=== PATIENT | female | born 1960 | race Caucasian/White ===

== ENCOUNTER 2019-01-23 08:47 | Inpatient (IN) | payer OTHER ==
[~2019-01-23] VITALS: Ht 167.6 cm; Wt 72.6 kg
--- NOTE | ~2019-01-23 | OP ---
[facility] [address] [place] [address] OPERATIVE REPORT Name: LA NENA JAMESON Room: [address] [place] .R.#: [id number] Admission: 01/23/19 Attend Phys: Fredis Berrios MD Discharge: Date of : 62 Report #: [id number] THIS REPORT FOR: //name// CC: LAKESHA physician/PCP Fredis Berrios DATE OF SERVICE: 01/23/2019 PREOPERATIVE DIAGNOSIS: Displaced bilateral Colles' fractures. POSTOPERATIVE DIAGNOSIS: Displaced bilateral Colles' fractures. OPERATIVE PROCEDURES PERFORMED: 1. Open reduction and internal fixation of displaced left distal radius. 2. Open reduction and internal fixation of displaced right distal radius. DESCRIPTION OF PROCEDURE: Under general endotracheal anesthesia, the patient was placed on to the operating room table in the supine position. Routine prep and drape was performed of both hands and arms. The procedures were performed under tourniquet ischemia. Bleeding was controlled by electrocautery. The wounds were irrigated every 20 minutes with bacitracin solution. Identical procedures were performed of both wrists. Following an appropriate timeout procedure, a 3-inch skin incision was made over the volar aspect of the distal radius. The incision was carried through the skin, subcutaneous tissue and fascia. The flexor carpi radialis tendon was retracted toward the ulnar side of the risk. Blunt dissection was carried down to the quadratus muscle. The quadratus muscle was then incised along the radial border at its insertion. An elevator was used to elevate the quadratus muscle from the volar aspect of the distal radius and fracture site. Under C-arm fluoroscopy control, both fractures were reduced into an anatomic position. A smooth K-wire was passed across the fracture site to secure the fracture in an anatomic position. A compression plate was then inserted with its component screws securing the distal radial fractures in an anatomic position. Both procedures were performed under C-arm fluoroscopy control. Operative x-rays were obtained and saved. The wounds were copiously irrigated and closed in layers with 2-0 Vicryl for the muscular and fascial layers. The skin was then closed with 4-0 nylon sutures. Sterile dressing was applied. The patient tolerated the procedures well and was returned to the recovery area in good condition. By: [id number] Gonzalez MD /samara
[~2019-01-23 08:47] MED LIST: BONE DENSITY; CALCI; CALCIUM PO; PERCOCET 5-3251 EACH PO; VITAMIN D1000 UNI1 PO
[2019-01-23 08:53] VITALS: BP 150/92
[2019-01-23 11:21] LABS: ABSOLUTE LYMPHOCYTES 1.7 thou/uL (0.8-5.3); ABSOLUTE MONOCYTES 0.4 thou/uL (0.0-1.2); ABSOLUTE NEUTROPHILS 4.8 thou/uL (1.6-8.1); BASOPHILS 0.5 %; EOSINOPHILS 0.4 %; HEMATOCRIT 43.6 % (37.0-47.0); HEMOGLOBIN 14.5 gm/dL (12.0-15.0); LYMPHOCYTES 24.3 %; MCHC 33.2 g/dL (28.0-37.0); MCV 93.5 fL (80.0-100.0); MONOCYTES 5.6 %; MPV 9.2 fl. (7.2-11.1); NUCLEATED RBCS 0 /100WBC; PLATELET COUNT* 154 thou/uL (150-400); POLYS 69.2 %; RBC 4.67 mil/uL (4.20-5.00); RDW-CV 13.3 % (10.5-14.5); WBC 6.9 thou/uL (4.0-11.0)
[2019-01-23 11:24] LABS: CALCIUM 9.9 mg/dL (8.5-10.1); CREATININE 0.9 mg/dL (0.6-1.3); MAGNESIUM 1.8 mg/dL (1.8-2.4); POTASSIUM 4.2 mmol/L (3.5-5.1)
--- NOTE | 2019-01-23 11:51 | NUR ---
REPORT GIVEN TO LIYA FORD WHO IS TO ASSUME PT CARE INPATIENT NURSE.
[2019-01-23 11:52] VITALS: BP 157/80
[2019-01-23 11:53] LABS: APTT 26.6 Seconds (25.0-31.3); PROTIME 10.1 Seconds (9.20-11.50)
[2019-01-23 11:55] VITALS: BP 136/76
--- NOTE | 2019-01-23 11:55 | NUR ---
ADMISSION: 58Y/O FEMALE ADMITTED FROM ER FOR BILAT WRIST FRACTURES. IMMOBILIZATION DRSGS IN PLACE. FINGERS NOTED WARM. CAP REFILL LESS THAN 3 SEC TO ALL FINGERS. PATIENT ABLE TO WIGGLE ALL FINGERS. PATIENT STATES SHE WAS WALKING THIS MORNING AND FELL BACKWARDS, TRIED TO CATCH HERSELF AND FELT SHE FRACTURED BOTH HER WRISTS. CAME TO THE ER FOR EVALUATION. IV CATH SITE TO LT AC AREA NOTED 20GA, FLUSHES EASILY W/ 10ML NS, CDI. PATIENT ALERT AND ORIENTED X4, STATES PAIN "TOLERABLE" 7/10 AT THIS TIME. FRIEND PRESENT IN , SISTER ARRIVES SHORTLY AFTER. ENC TO ELEVATE BUE ON PILLOWS W/ ICE. PATIENT STATES SHE HAS RX GLASSES, BUT HAS NOT WORN THEM IN A LONG TIME. STATES HAS TROUBLE SEE CLOSE UP, BUT IS ABLE TO READ RX BOTTLES W/O DIFF. PATIENT STATES HAVING AN INTOLERANCE TO ADHESIVES/TAPE. STATES CAUSES BLISTERS. REVIEW OF POC AND INTERVENTIONS, ADMISSION REVIEW AND INSTRUCTIONS DONE. PATIENT STATES VERBALLY OF UNDERSTANDING. CASE MANAGEMENT CONSULTED FOR ADVANCE DIRECTIVE INFO AND FINANCIAL ASSISTANCE. CALL LIGHT IN REACH. NPO STATUS MAINTAINED. PATIENT STATES LAST TIME EATING WAS 0715 THIS AM.
--- NOTE | 2019-01-23 15:20 | NUR ---
PT.WAS WALKING BACKWARDS FOR EXERCISE. TRIPPED AND FELL BACKWARDS, LANDING ON BOTH WRISTS SHE PUT THEM BACK TO CATCH HERSELF. GOING TO SURGERY THIS AFTERNOON. SISTER,OSCAR AND COUSIN AT BEDSIDE. SHE SAID THEY BOTH COULD STAY FOR CONVERSATION. PT.ALERT AND ORIENTED. STATED SHE OWNS HER OWN HOUSE BUT SONS 29 AND 26 AND DAUGHTER IN LAW LIVE WITH HER. THEY DON'T HELP WITH MORTAGE BUT HELP WITH GROCERY BILL. SHE IS INDEPENDENT. IS SELF EMPLOYED. 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 SHE WANTS TO SEE ABOUT FILING FOR SOME EMERGENCY DISABILITY. CM WILL CONTACT CLEAR TO INQUIRE. HELPED PT.FILL OUT DPOA AND AD. NOTARIZED BY FANY. COPY ON CHART.
[2019-01-23 16:15] VITALS: BP 148/74
--- NOTE | 2019-01-23 16:15 | NUR ---
OUT OF ROOM, TO SURGERY.
[2019-01-23 21:30] VITALS: BP 170/88
--- NOTE | 2019-01-23 22:55 | NUR ---
2130 oriented x 4 female patient returned to room 101 post surgery by bed in stable condition. Family (sister) at bedside. Vital signs stable with o2 on at 2l/min and continuous oximetry. Bilat wrists with dressing and splints elevated with ice. Severe pain on arrival but easing after getting checked in and rest. Received pain medication prior to transport. Post-op routine education complete including pain mangement, medications. Checking on patient q15-30 minutes as she is unable to use call light. 2229 taking oral fluids, ice and jello with assist. Oxy IR 5mg provided for pain 5-8/10. Has also voided. Continue to monitor.
[2019-01-24] VITALS: BP 155/82
--- NOTE | 2019-01-24 06:10 | NUR ---
PATIENT HAS PROGRESSED WELL OVERNIGHT TOWARDS DISCHARGE GOALS. UP TO BR TO VOID WITH SBA. PAIN CONTROLLED WITH IV AND ORAL MEDICATIONS TO A 3/10. FINGERS BILAT WARM, DRY, MOBILE WITH BRISK CAP REFILL. BILAT UE'S KEPT ELEVATED WITH ICE TO WRISTS. VITAL SIGNS STABLE. NO NAUSEA WITH ICE, WATER, JELLO AND CRACKERS. PATIENT STATES SHE WAS TOLD BY DR. BARNETT TO MAINTAIN HER SPLINTS WITH FOLLOW-UP APPT A WEEK FROM WEDNESDAY. PAIN MEDICATION RX WAS GIVEN TO FAMILY PRIOR TO PATIENT RETURN TO UNIT AND STAFF ON UNIT AND PATIENT DO NOT KNOW WHAT IT WAS. THE PHARMACY IT WAS TAKEN TO WOULD NOT FILL THE ENTIRE # OF TAB AMOUNT WRITTEN FOR AND THIS WILL NEED TO BE ADDRESSED THIS AM. SHE HAS FRIENDS AND FAMILY TO HELP AT HOME WHEN DISCHARGED. ALERT AND ORIENTED X 4 AND RESTING QUIETLY ON 30-60 MINUTE ROUNDS. PATIENT HAS FIGURED OUT A WAY TO USE HER CALL LIGHT THIS AM MAINTAINING THE RESTRICTIONS ON HER WRISTS/HANDS. CONTINUE TO MONITOR.
[2019-01-24 07:20] VITALS: BP 136/69
[2019-01-24] MEDS ORDERED: OXYCODONE HCL 55 MG PO (10:51)
[2019-01-24 10:52] VITALS: BP 136/69
[2019-01-24] MEDS ORDERED: NORCO 5-325 TA1 EAC1 PO (13:33)
--- NOTE | 2019-01-24 14:00 | NUR ---
SPOKE WITH PT.,SISTER AND COUSIN. PT.A LITTLE NAUSEOUS BUT WILL WAIT TIL SHE FEELS BETTER TO RING NURSE FOR DISCHARGE. GAVE HER APPLICATION FROM HOSPITAL FOR FINANCIAL ASSISTANCE. DISCUSSED HH WITH HER. SHE WOULD LIKE OT. AND ANY AGENCY THAT TOOK HER INSURANCE. SHE REQUESTED I CALL TO CHECK HER BENEFITS FOR ACUTE INPT.AND HOME HEALTH. CALLED [facility] AT [phone]. RECEIVED BENEFITS AND GAVE THEM TO PT. CONTACTED [facility]. THEY WILL ACCEPT PT.TO SERVICE. OT CANNOT STAND ALONE SO NSG.ORDERED ALSO FOR PT. THEY WILL CALL HER IN AM TO SCHEDULE AN APPT. FAXED REFERRAL INFORMATION AND ORDERS TO [facility] AT [phone]. PT.TO SEE AT [facility] IN OUTPT.CLINIC FOR FOLLOW UP. ATTEMPTED TO MAKE APPT.FOR HER BUT HAD TO LEAVE VM TO CALL PT.TO SCHEDULE. PUT [facility] PHONE NUMBER ON HER DC INSTRUCTIONS. LIYA OSEGUERA INFORMED OF ABOVE.
[2019-01-24 16:01] VITALS: BP 166/92
--- NOTE | 2019-01-24 16:16 | NUR ---
PT GIVEN DISCHARGE INFORMATION. IV REMOVED. PRESCRIPTION GIVEN BY DOCTOR AND WAS FILLED AT PHARMACY. HOME HEALTH SET UP. FALL RISK PRECAUTIONS IN PLACE. HOURLY ROUNDING COMPLETED. PT LEFT AMBULATORY WITH NURSING STAFF TO HOME.
[2019-01-24 16:17] VITALS: BP 136/69
--- NOTE | 2019-01-25 15:39 | NUR ---
[facility] CALLED CM AND SAID DUE TO SCHEDULING, THEY WONT BE ABLE TO SEE PT.UNTIL WEDNESDAY. HIS WILL BE OK, PT.'S SISTER IS STAYING WITH HER. FAXED ORDER TO START SERVICE ON WEDNESDAY.
== END 2019-01-24 16:18 | disposition home health service (06) | DRG 511 ==
LOC: M.ERS 08:47 → M.ORTHSURG 10:34 → M.TBA-ER 10:34 → M.ORTHSURG 11:55
PROVIDERS: ADMIT Internal Medicine
PROC: 0PSJ04Z Reposition Left Radius with Internal Fixation Device, Open Approach (ICD-10-PCS; principal; 2019-01-23)
PROC: 0PSH04Z Reposition Right Radius with Internal Fixation Device, Open Approach (ICD-10-PCS; principal; 2019-01-23)
DX: S52.532A Colles' fracture of left radius, initial encounter for closed fracture (principal); S52.531A Colles' fracture of right radius, initial encounter for closed fracture; D69.3 Immune thrombocytopenic purpura; S52.612A Displaced fracture of left ulna styloid process, initial encounter for closed fracture; S52.572A Other intraarticular fracture of lower end of left radius, initial encounter for closed fracture; W18.39XA Other fall on same level, initial encounter; Y93.89 Activity, other specified; Y92.89 Other specified places as the place of occurrence of the external cause; Y99.8 Other external cause status; Z88.5 Allergy status to narcotic agent; Z88.6 Allergy status to analgesic agent; Z88.8 Allergy status to other drugs, medicaments and biological substances